=== PATIENT | female | born 1955 | race Caucasian/White ===

== ENCOUNTER 2018-06-10 02:33 | Outpatient (CLI) | payer BC, SELFPAY ==
[2018-06-10 10:47] LABS: ALT 27 U/L (12-78); AST 19 U/L (15-37); Albumin 4.2 g/dL (3.4-5.0); Alkaline Phosphatase 73 U/L (46-116); Anion Gap 9.1 mmol/L (3-11); BUN 18 mg/dL (7-18); Bilirubin, Total 0.4 mg/dL (0.2-1.0); CO2 28.9 mmol/L (21.0-32.0); CREATININE 0.86 mg/dL (0.55-1.02); Calcium 9.5 mg/dL (8.5-10.1); Chloride 104 mmol/L (98-107); Cholesterol 219 mg/dL (50-200); Glucose 95 mg/dL (70-100); HDL Cholesterol 53 mg/dL (40-60); LDL CHOLESTEROL 140 mg/dL (<100); Potassium 4.3 mmol/L (3.5-5.1); Sodium 142 mmol/L (136-145); Total Protein 7.3 g/dL (6.4-8.2); Triglyceride 106 mg/dL (30-150)
== END 2018-06-10 02:53 ==
DX: Z00.00 Encounter for general adult medical examination without abnormal findings (principal); K64.4 Residual hemorrhoidal skin tags; M54.5 Low back pain
CPT/HCPCS: 36415; 80053; 80061; 83721

== ENCOUNTER 2018-07-01 00:40 | Outpatient (CLI) | payer BC, SELFPAY ==
--- NOTE | 2018-07-01 07:30 | DI.MAMMO_ITS ---
SYMPTOMS/DIAGNOSIS: SCREENING, Z12.31 MAMMOGRAMS: Mammograms were interpreted according to the usual protocol including computer analysis with CAD system, tomosynthesis and C view imaging. The breasts are of moderate density with fairly symmetrical distribution of fibroglandular tissue. No dominant mass or clumped microcalcification is identified in either breast. Current examination is compared with previous examinations including June 2017 and there has been no gross interval change in appearance in comparison with the previous studies. CONCLUSION: No specific evidence of malignancy at this time. Routine screening examinations are suggested at yearly intervals due to the family history of breast carcinoma. Category 1, breast density category B. MQSA ASSESSMENT OF FINDINGS: Negative. Category 1. Patient will receive a letter notifying them of these results. BI-RADS category B. There are scattered areas of fibroglandular density.
== END 2018-07-01 01:00 ==
DX: Z12.31 Encounter for screening mammogram for malignant neoplasm of breast (principal); Z80.3 Family history of malignant neoplasm of breast
CPT/HCPCS: 77063; 77067

== ENCOUNTER 2018-10-06 07:53 | Day surgery (SDC) | payer BC, SELFPAY ==
--- NOTE | 2018-10-06 07:16 | W.COLOREPORT ---
Date of service: 10/06/18 Time of Service: 09:34 Colonoscopy Report Date of procedure: 10/06/18 Pre-op diagnosis general: Colon Cancer Screening and internal hemorrhoids Post-op diagnosis procedure note: other (Diverticulosis and one internal hemorrhoid) Procedure: 1. Colonoscopy 2. Internal Hemorrhoid banding Surgeon: Patty Messina Anesthesia proc note operative: other (general/ ASA 2/Ricardo Ku, MADELAINE) Estimated blood loss (mL): 3 Pathology: none sent Complications: None Disposition: same day Indications: Mrs. Lawler is a pleasant 63 year old female seen in the office for a screening colonoscopy. She also has internal hemorrhoids that are causing discomfort and bleeding. Risks, benefits and complications have been reviewed. Complications include but are not limited to bleeding, pain, perforation, missed small lesion/polyp, sore throat, aspiration and adverse reaction to the medications. Questions were entertained and answered to their satisfaction and they wished to proceed. No guarantees were given or implied. Prep: Miralax/Dulcolax Procedure Start Time: :34 Procedure End Time: 10:00 Retraction Time: 17 minutes Findings: Mild Diverticulosis and one internal hemorrhoid Procedure Description: After informed consent was obtained the patient was taken to the procedure room and placed in a left decubitous position. Monitors were applied and a time out was done. The patients name, date of , procedure, allergies to medications and metal in their body was reviewed. The patient was then sedated. Once sedated and comfortable a rectal exam was done. External exam was normal. Internal exam revealed a normal sphincter tone and no palpable masses. The scope was then introduced and retro-flexed. One Grade 1 internal hemorrhoid were identified. The scope was then advanced to the cecum without difficulty. The TI and appendiceal orifice were identified. The prep was adequate. The scope was then slowly retracted over 17 minutes back into the rectum. There were no polyps. There was mild diverticulosis of the sigmoid colon. The scope was removed and the patient was woken up and taken back to Same day surgery in stable condition. The patient tolerated the procedure well and there were no immediate complications. Follow up: The patient should follow up in 10 years unless they develop changes in bowel habits or other new gastrointestinal complaints.
--- NOTE | 2018-10-06 07:18 | W.PM.DSUDISC ---
Discharge Plan Disposition Patient Disposition: HOME Condition: Good Discharge Details Reason For Visit: Colonoscopy and internal hemorrgoid banding Attending Provider: Patty Messina Primary Care Provider: Aleena Morfin Home Meds and New Rx's Prescriptions: Continued Nupercainal 1 % ointment 1 applic IL QID PRN (Reason: hemorrhoids) Qty: 56.7 RF: 1 ibuprofen 800 mg tablet 800 mg PO TID PRN (Reason: pain) Qty: 90 RF: 0 hydrocortisone acetate [Anusol-HC] 25 mg suppository 25 mg IL QD-BID PRN (Reason: itching) Qty: 24 RF: 4 flaxseed 340 GM powder 1 tsp PO DAILY RF: 0 wheat germ 1 tsp PO DAILY RF: 0 Discontinued bisacodyl [Dulcolax (bisacodyl)] 5 mg tablet,delayed release (DR/EC) 5 mg PO ONCE Qty: 4 RF: 0 polyethylene glycol 3350 17 gram powder in packet 255 g PO DAILY Qty: 15 RF: 0 Discharge Instructions Instructions: Colonoscopy (GEN), Rubber Band Ligation (GEN), Diverticulosis (ED) Additional Instructions: Findings: Diverticulosis and one internal hemorrhoid Follow up: 10 years Please call if you develop: fevers >101.5 Nausea or Vomiting Abdominal pain that is not transient DAY SURGERY UNIT POST COLONOSCOPY INSTRUCTIONS 1. Because there will be medication in your system for the next 24 hours, you may feel a little sleepy. Your coordination will be affected. Therefore: a. Do not drive or operate dangerous equipment for 24 hours. b. Do not drink alcohol beverages for 24 hours (not even beer). c. Plan to go home and rest for the day. 2. Generally there are no restrictions on your activity after a day or so has gone by, but you may feel a bit fatigued for a few days. 3 After you arrive home you may have a light meal and return to a normal diet as you can tolerate it without feeling sick to your stomach. 4. After surgery, you may feel pain or discomfort. This should be only transient, but if it persists please contact your doctor. 5. If there are any questions regarding the findings of your procedure, please feel free to contact your doctor. 6. If you are unable to contact your doctor with a problem, contact the hospital at [phone]. 7. Continue all your regular medications unless directed otherwise. I understand the above instructions and have no questions. Signature of Patient or Responsible Adult Escort Date/Time Name of Responsible Adult Escort Signature of Nurse Date/Time Activity:: Activity as Tolerated Diet:: High Fiber diet Discharge Orders Discharge Orders: Discharge Order (Routine); Ordered 10/06/18 Ordered By: Patty Messina DS: Diagnosis Discharge Diagnosis (1) History of colonoscopy: Status: Chronic
--- NOTE | 2018-10-06 07:20 | W.PM.HP.N ---
Date of service: 10/06/18 Assessment and Plan (1) History of colonoscopy: Current visit: Yes Status: Chronic A\\ Intermittent bleeding and itching from internal hemorrhoids. Discussed etiology of hemorrhoids and treatment options. We went over avoiding constipation as well as diarrhea. Recommend a high fiber diet and good hydration P\\ Continue with current treatment Will do a hemorrhoid banding at the time of her colonoscopy. (2) Hemorrhoids: Current visit: No Status: Chronic A\\ Colon Cancer screening P\\ Colonoscopy under sedation Risks, benefits and complications have been reviewed. Complications include but are not limited to bleeding, pain, perforation, missed small lesion/polyp, sore throat, aspiration and adverse reaction to the medications. Questions were entertained and answered to their satisfaction and they wished to proceed. No guarantees were given or implied. Qualifiers: Hemorrhoid type: first degree Qualified Code(s): K64.0 - First degree hemorrhoids History of Present Illness Narrative: Mrs. Lawler is a pleasant 63 year old female who has been having intermittent issues with internal hemorrhoids that bleed on and off. She has used suppositories as well as sitz baths and sometimes lidocaine ointment. She is also here to discuss a colonoscopy. Her last Colonoscopy was 10 years ago and was normal. She denies any changes in bowel habits, melena, unintentional weight loss, or family history of colon cancer. There have been no changes in her health since she was last seen Review of Systems Constitutional Denies fever(s) Cardiovascular Denies chest pain, Denies chest pain at rest, Denies claudication, Denies palpitations, Denies dyspnea and Denies dyspnea on exertion Respiratory Denies dyspnea and Denies dyspnea on exertion Endocrine Denies palpitations [facility] Medical History Eczema (Acute) External hemorrhoid (Acute 06/16/17) Family history of breast cancer in sister (Acute 06/16/17) Hip pain (Acute 07/23/12) Low back pain (Acute 11/28/14) Parotitis (Acute) Sialadenitis (Acute 11/28/14) Surgical History History of colonoscopy (Chronic ~10/06/18) Laparoscopic, Ovarian Cystectomy (~1996) Open Carpal Tunnel release Family History Mother Essential hypertension Stroke Heart disease Father Lung cancer Brother Smoker Prostate cancer Hypertension Sister Essential hypertension FAMILY HISTORY Stroke Sister Hypertension Sister No problems noted. Sister No problems noted. Sister Breast cancer Sister No problems noted. Brother Smoker Hypertension Maternal Grandfather No problems noted. Paternal Grandfather No problems noted. Maternal Grandmother No problems noted. Paternal Grandmother No problems noted. Social History Smoking/Tobacco Use Status: Former Tobacco Use Quit Date: 03/23/77 Alcohol Intake: never Drug use: Never Substance use type: does not use Caregiver/Support person: No Household members: spouse Housing: house Communication Needs: None Pets and animals: No Sexually active: Yes Do you think of yourself as: straight/heterosexual Current gender identity: female What is your relationship status?: How often do you talk on the phone with friends or family?: decline to answer How often do you get together with friends or relatives?: decline to answer How often do you attend pentecostalism or presybeterian services?: decline to answer Do you belong to any clubs or organized social groups?: decline to answer Panel score (0-1 are the most socially isolated patients): 1 What type of physical activity do you participate in: walking Duration: 30-45 minutes/day Frequency: 5-6 times per week Carli/Hoahaoism: [employer] Special carli needs: No Seatbelt use: always Do you feel safe at home: Yes Do you feel safe in your relationship?: Yes Meds Home Medications Medication Instructions Recorded Confirmed Type Wheat Germ 1 tsp PO DAILY 07/23/12 10/06/18 History flaxseed 1 tsp PO DAILY 07/23/12 10/06/18 History ibuprofen 800 mg tablet 800 mg PO TID PRN #90 tab 04/13/18 10/06/18 Rx dibucaine 1 % rectal ointment 1 applic ME QID PRN #56.7 gm 06/28/18 10/06/18 Rx hydrocortisone acetate 25 mg 25 mg ME QD-BID PRN #24 each 08/23/18 10/06/18 Rx rectal suppository Allergies Allergy/AdvReac Type Severity Reaction Status Date / Time No Known Allergies Allergy Verified 10/06/18 08:16 Exam Const General: cooperative and comfortable Orientation: alert and oriented x3 Resp Effort & Inspection: normal respiratory effort Auscultation: clear to auscultation bilaterally Cardio Rate: regular rate Rhythm: regular rhythm Heart Sounds: no gallops, no murmurs and no rubs
[2018-10-06 08:06] VITALS: BP 125/82; PULSE 94; RESP 18; TEMP 35.8; O2SAT 96
[2018-10-06] MEDS: Lactated Ringers 1,000 ML 80 ML IV (08:27)
[2018-10-06 10:46] VITALS: BP 91/56; PULSE 71; RESP 16; TEMP 35.6; O2SAT 98
== END 2018-10-06 11:06 | disposition home or self-care (01) ==
LOC: SUR 07:54
PROVIDERS: Visit Provider Surgery
PROC: 0DJD8ZZ Inspection of Lower Intestinal Tract, Via Natural or Artificial Opening Endoscopic (ICD-10-PCS; CPT 45378; principal; 2018-10-06 09:15)
DX: Z12.11 Encounter for screening for malignant neoplasm of colon (principal); K64.0 First degree hemorrhoids; K57.30 Diverticulosis of large intestine without perforation or abscess without bleeding
CPT/HCPCS: 45398; NC

== ENCOUNTER 2020-10-29 12:44 | Outpatient (REF) | payer BC, SELFPAY ==
--- NOTE | 2020-10-29 11:14 | PAPFT_PTH ---
PATIENT: Samantha Lawler LOC: [facility]#:[id number] AGE/SX: 65/F ROOM: RE10/29/[address]: Aleena Morfin APRN : 1955 BED: DIS: 10/29/2020 SPEC #: [id number] RECD: 10/29/20 13:07 STATUS: SEBASTIÁN REQ #: [id number] CAYDEN: 10/29/20 11:[address]: Aleena Morfin DEPT: [facility] Cytology RECD BY: Sosa Gordillo Tissues: 1 - CX/ENDOCX FOR PAP SMEARS Procedures: PAP THIN PREP/UVM Screening HPV DNA PROBE Comments: [id number]
== END 2020-10-29 12:45 | disposition home or self-care (01) ==
LOC: LBN 12:44
DX: Z12.4 Encounter for screening for malignant neoplasm of cervix (principal); Z11.51 Encounter for screening for human papillomavirus (HPV)
CPT/HCPCS: 88142; 87624

== ENCOUNTER 2020-11-02 02:07 | Outpatient (CLI) | payer BC, SELFPAY ==
[2020-11-02 13:32] LABS: ALT 49 U/L (14-59); AST 27 U/L (15-37); Albumin 4.2 g/dL (3.4-5.0); Alkaline Phosphatase 69 U/L (46-116); Anion Gap 3.3 mmol/L (3-11); BUN 16 mg/dL (7-18); Bilirubin, Total 0.5 mg/dL (0.2-1.0); CO2 29.7 mmol/L (21.0-32.0); CREATININE 0.8 mg/dL (0.55-1.02); Calcium 9.5 mg/dL (8.5-10.1); Calculated LDL 146 mg/dL (<100); Chloride 107 mmol/L (98-107); Cholesterol 215 mg/dL (<200); Glucose 96 mg/dL (74-106); HDL Cholesterol 54 mg/dL (40-60); Potassium 4.8 mmol/L (3.5-5.1); Sodium 140 mmol/L (136-145); Total Protein 7.5 g/dL (6.4-8.2); Triglyceride 75 mg/dL (<150)
== END 2020-11-02 02:08 | disposition home or self-care (01) ==
LOC: LOS 02:07
DX: Z00.00 Encounter for general adult medical examination without abnormal findings (principal); E78.5 Hyperlipidemia, unspecified; R03.0 Elevated blood-pressure reading, without diagnosis of hypertension
CPT/HCPCS: 36415; 80053; 80061

== ENCOUNTER 2020-11-21 01:54 | Outpatient (CLI) | payer BC, SELFPAY ==
--- NOTE | 2020-11-21 08:15 | DI.MAMMO_ITS ---
Exam(s) MAMMO SCREENING EXAM: MAMMO SCREENING CLINICAL HISTORY: screening,Z12.39 TECHNIQUE: Bilateral full field digital CC and MLO mammographic images were obtained with 3D tomosyn thesis and utilizing computer aided detection (CAD). COMPARISON: Available for comparison. FINDINGS: Masses/Architectural Distortion: None seen. Microcalcifications: No suspicious pleomorphic-type are seen. Skin Thickening/Nipple Retraction: None. IMPRESSION: 1. No significant interval change with no specific features of malignancy noted. 2. Unless there is more urgent need, screening mammography is recommended, as per [place] [employer] guidelines. BI-RADS Category 1 - Negative Breast Density - Category B - Scattered areas of fibroglandular density Breast density category C or D implies that the patient has dense breast tissue. Dense breast tissue is very common and is not abnormal but dense breast tissue can make it harder to find cancer on a ma mmogram. Also, dense breast tissue may increase their breast cancer risk. This information about the result of the mammogram report was provided to the patient to raise their awareness. Use this report when you speak with the patient about their risks for breast cancer, which includes their family hist ory. At that time, you may recommend for more screening tests (Ultrasound or MRI) as they might be us eful based on their risk. A negative radiographic report should not delay biopsy if a dominant or clinically suspicious mass is present. Up to ten percent of cancers are not identified on mammography. A negative report may reinforce clinical impression. Adenosis and dense breasts may obscure an underlying neoplasm. False positive reports average 6 to 10%. Patient will receive a letter notifying them of these results.
== END 2020-11-21 02:14 ==
DX: Z12.31 Encounter for screening mammogram for malignant neoplasm of breast (principal)
CPT/HCPCS: 77063; 77067

== ENCOUNTER 2021-10-04 01:20 | Outpatient (CLI) | payer BC, SELFPAY ==
--- OUTSIDE RECORDS SUMMARY | 2021-10-04 01:21 | XMS_ITS | Encounter Summary ---
:1955 [place] [address] Care Team Providers Name Role Phone Ericka Fuentes APRN Primary Care Provider Reason for Visit Reason Comments Establish Care Possible parotitis, sx's inc lude swollen face, no pain Consultation (Routine) - Specialty Diagnoses / Procedures Referred By Contact Refer red To Contact Otolaryngology Diagnoses Sialadenitis Calista Cutler MD [facility] Otolaryngology [address] [address] [place], [place] [address] Referral ID Status Reason Start Date Expiration Date Visits V isits Requested Authorized [id number] Consult, 09/14/2015 09/13/2016 1 1 Test & Treat Connection Center Encounter Details Date Type Department Care Team Description 10/10/2015 Office Visit Otolaryngology at [facility] Santino Blood PA Parotid swelling [facility] [place] [address] OTOLARYNGOLOGY DEPT. [place], [place] [address] Social History Tobacco Use Types Packs/Day Years Used Date Never Smoker Sex Assigned at Date Recorded Not on file documented as of this encounter Last Filed Vital Signs Vital Sign Reading Time Taken Comments Blood Pressure 143/94 10/10/2015 12:47 PM EDT Pulse 79 10/10/2015 12:47 PM EDT Temperature - - Respiratory Rate - - Oxygen Saturation - - Inhaled Oxygen Concentration - - Weight 81.2 kg (179 lb) 10/10/2015 12:47 PM EDT Height 162.6 cm (5' 4) 10/10/2015 12:47 PM EDT Body Mass Index 30.73 10/10/2015 12:47 PM EDT documented in this encounter Progress Notes Santino Blood PA - 10/10/2015 1:00 PM EDT Samantha Lawler is 60 years of age and presents today for evaluation of facial swelling. The patient reports a history in November 2014 where she awoke with her lips and mouth feeling swollen in the left side of her face swollen. She did go to the emergency department. They felt that thiswas most likely a parotid duct obstruction. She was placed on antibiotics and prednisone and told tomassage the gland. She came home and brushed her teeth with her sonic care and was massaging that region. She heard a pop and the swelling immediately went down with drainage of clear saliva. She continued to stay hydrated. However, in August she had similar symptoms but it felt a bit worse to her with increased swelling. She was again placed on antibiotics, and serologic studies did reflect an increase in her white blood cell count. She did start massaging again and the swelling went down. She was uncomfortable but in no significant pain. Her mouth felt abnormal slightly burning sensation. She also was having decreased sense of taste and her mouth just felt different. Interestingly a few days laterwhile still on the prednisone and antibiotics the right side parotid region became swollen. All her symptoms eventually resolved and she is back to normal. She has continued to keep herself hydrated and does use Wendell's with massage. She denies any dry eye symptoms or dry mouth symptoms. She just describes an abnormal sensation in the mouth. Her health otherwise is excellent no chronic illnesses described. She did have an issue with eczema for a couple of years but that has since cleared up. Social history: She is and works in an office. Tobacco: She smokes socially for 1-2 years in high school. Quit entirely in 1977. Alcohol: Does not use. Family history: Father has had a history of lung cancer. On exam she is healthy-appearing in no acute distress. Palpation of the parotid regions revealed no palpable mass or induration. The neck is without palpable adenopathy or mass. Oral examination reveals normal appearing mucosa of the buccal mucosa, gutters, gums, palate, and posterior pharyngeal wall. Milking of the parotid glands produces clear saliva from Stensen's ducts. The patient and massage of the subendometrial glands also produce clear saliva from Ocean's ducts. The oral mucosa appears healthy. Impression: Intermittent swelling of the parotid glands. I'm unsure of the etiology. This possibly could be due to Sjogren's syndrome. My feeling is that she should continue with hydration, sialogogs, and parotid massage. Should this persist I would recommend rheumatology evaluation. She may go through her primary care physician for the referral. Santino Blood PA-C Department of Otolaryngology [facility] [place] [address] Office Phone - documented in this encounter Plan of Treatment Not on filedocumented as of this encounter Visit Diagnoses Diagnosis Parotid swelling Swelling, mass, or lump in head and neck documented in this encounter Care Teams Chief Inspector Relationship Specialty Start Date End Date Ericka Fuentes APRN PCP - General Family Medicine 09/13/15 documented as of this encounter
--- OUTSIDE RECORDS SUMMARY | 2021-10-04 01:21 | XMS_ITS | Encounter Summary ---
:1955 Author Organization [facility] [place] [address] Care Team Providers Name Role Phone Ericka Fuentes Keith JESSICA Primary Care Provider Reason for Visit Reason Comments Flashes Of Light Consultation (Urgent) - Closed Specialty Diagnoses / Procedures Referred By Contact Refer red To Contact Ophthalmology Luis Eduardo Horton, Nenita Muñoz MD [address] [place] [address] [place] [address] [place] [address] Phone: Fax: Referral ID Status Reason Start Date Expiration Date Visits V isits Requested Authorized [id number] Closed Consult, 04/25/2019 04/24/2020 1 1 Test & Treat Encounter Details Date Type Department Care Team Description 04/26/2019 Office Visit Ophthalmology at [facility] C Nenita Fleming, Retinal hemorrhage, [facility] [place] [address] [facility] [phone] OPHTHALMOLOGY DEPT [place], [place] [address] Social History Tobacco Use Types Packs/Day Years Used Date Former Smoker Smokeless Tobacco: Never Used Alcohol Use Standard Drinks/Week Comments Not Currently 0 (1 standard drink = 0.6 oz pure alcoho l) Sex Assigned at Date Recorded Not on file documented as of this encounter Progress Notes Nenita Fleming MD - 04/26/2019 8:30 AM EST Encounter Diagnosis Name Primary? Retinal hemorrhage, right eye Samantha Lawler, a 63 y.o. female with the following problem(s): 1. Possible retinal tear OD: suspicious given symptoms and + Stockton's sign. Retinal hemorrhage at 6 oclock concerning for possible tear - d/w SOPHY and they will evaluate today - Findings and concerns discussed with Samantha and she expressed understanding. FOLLOW UP - with retina today documented in this encounter Plan of Treatment Not on filedocumented as of this encounter Visit Diagnoses Diagnosis Retinal hemorrhage, right eye Retinal hemorrhage documented in this encounter Care Teams Step Down Specialist Relationship Specialty Start Date End Date Ericka Fuentes APRN PCP - General Family Medicine 09/13/15 documented as of this encounter
--- OUTSIDE RECORDS SUMMARY | 2021-10-04 01:21 | XMS_ITS | Clinical Summary ---
:1955 Author Organization [facility] [place] [address] Care Team Providers Name Role Phone Ericka Fuentes APRN Primary Care Provider Allergies No known active allergies Medications Medication Sig Dispensed Refills Start Date End Date Status Ibuprofen 200 mg Take 400 mg by 0 Active Capsule mouth as needed. Active Problems Problem Noted Date Retinal hemorrhage, right eye 04/26/2019 Immunizations Name Administration Dates Next Due Influenza Vaccine, Whole 02/04/2006, 01/17/2005 Family History Medical History Relation Comments Glaucoma Paternal Uncle Macular Degeneration Paternal Uncle Amblyopia Neg Hx Retinal Detachment Neg Hx Strabismus Neg Hx Relation Status Comments Paternal Uncle Social History Tobacco Use Types Packs/Day Years Used Date Former Smoker Smokeless Tobacco: Never Used Alcohol Use Standard Drinks/Week Comments Not Currently 0 (1 standard drink = 0.6 oz pure alcoho l) Sex Assigned at Date Recorded Not on file Last Filed Vital Signs Vital Sign Reading Time Taken Comments Blood Pressure 140/85 11/21/2015 12:47 PM EDT Pulse 79 11/21/2015 12:47 PM EDT Temperature 36.8 ??C (98.2 ??F) 11/21/2015 12:47 PM EDT Respiratory Rate - - Oxygen Saturation 100% 11/21/2015 12:47 PM EDT Inhaled Oxygen Concentration - - Weight 83.9 kg (185 lb) 11/21/2015 12:47 PM EDT Height 162.6 cm (5' 4) 11/21/2015 12:47 PM EDT Body Mass Index 31.76 11/21/2015 12:47 PM EDT Plan of Treatment Health Maintenance Due Date Last Done Comments Covid-19 Vaccine (#1) 1962 HIV screen 07/02/1975 Hepatitis C Screening 07/02/1975 Tdap adult 1976 Tetanus vaccine 1976 HPV test 07/02/1987 PAP Smear 07/02/1987 Breast Cancer Share Decision Needed 1997 Colonoscopy 2002 Breast Cancer screening 07/02/2007 Zoster vaccine (1 of 2) 07/02/2007 Advance Directive 2012 Influenza (Flu) vaccine (1 of 1 - 11/21/2021 02/04/2006, Influenza standard series) Insurance Payer Benefit Plan / Subscriber ID Effective Dates Phone Addre ss Type Group [employer] [facility] [place] [id number] 2018-Present [address] [place] [address] Care Teams [employer] C[employer] Farmer Relationship Specialty Start Date End Date Ericka Fuentes, JESSICA PCP - General Family Medicine 09/13/15
--- OUTSIDE RECORDS SUMMARY | 2021-10-04 01:21 | XMS_ITS | Encounter Summary ---
:1955 Author Organization [facility] [place] [address] Care Team Providers Name Role Phone Ericka Fuentes APRN Primary Care Provider Encounter Details Date Type Department Care Team Description 04/26/2019 Office Visit Ophthalmology at [facility] C Naa, Retinal hemorrhage, [facility] [place] [address] [place] [address] [place], [place] [address] Social History Tobacco Use Types Packs/Day Years Used Date Former Smoker Smokeless Tobacco: Never Used Alcohol Use Standard Drinks/Week Comments Not Currently 0 (1 standard drink = 0.6 oz pure alcoho l) Sex Assigned at Date Recorded Not on file documented as of this encounter Progress Notes Randi Jacome MD - 04/26/2019 10:45 AM EST ASSESSMENT/PLAN: 1. Retinal hemorrhage, right eye Visual Acuity Visual Acuity (Snellen - Linear) Right Left Dist cc 20/25 20/20-2 Near cc 20/25-1 20/20 Tonometry Tonometry (Applanation) Right Left Pressure 14 15 1. Hemorrhagic PVD OD (Dx 04/26/2019) - Today's exam shows hemorrhagic posterior vitreous detachment in the right eye. Fortunately, the scleral depressed exam did not reveal signs of retinal breaks or other pathology for which prophylacticretinopexy would be recommended - Warning symptoms of retinal detachment (flashes, floaters, curtains/clouds) discussed. Also emphasized that the the first ~1 month after the PVD is the high risk period for retinal tears and retinal detachment. 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 Monitor 3. NS OU monitor Follow up in 2 weeks for DFE OU I, Chris ReyesTati Rojas, have performed the documentation for this encounter in the presence of, and acting as a scribe for Randi Jacome MD. I performed the services which were documented by the scribe, and I agree with the accuracy of the documentation in this encounter. Randi Jacome MD, PhD Extended Ophthalmoscopy and drawing: Technique: 20D with scleral depression and 78D with the slit lamp Findings: Main Ophthalmology Exam External Exam Right Left External Normal Normal Slit Lamp Exam Right Left Lids/Lashes Normal Normal Conjunctiva/Sclera White and quiet White and quiet Cornea Clear Clear Anterior Chamber Deep and quiet Deep and quiet Iris Round and reactive Round and reactive Lens Trace Nuclear sclerosis Trace Nuclear sclerosis Fundus Exam Right Left Vitreous 1+ VH, PVD Normal Disc Normal Normal C/D Ratio 0.4 0.4 Macula flame heme inf to fovea Normal Vessels Normal Normal Periphery inferior VH, , Shallow schisis ST retinoschisis ST, CHRPE IT Plan: See assessment and plan (exam note) documented in this encounter Plan of Treatment Not on filedocumented as of this encounter Procedures Procedure Name Priority Date/Time Associated Diagnosis Comme nts OCT RETINA - OU - Routine 04/26/2019 10:22 AM Retinal hemorrha ge, Results for this BOTH EYES EST right eye procedure are i n the results section. documented in this encounter Results OCT Retina - OU - Both Eyes (04/26/2019 10:22 AM EST) Anatomical Region Laterality Modality Other Specimen (Source) Anatomical Location Collection Method / Collectio n Time Received Time / Laterality Volume Narrative 04/26/2019 10:22 AM EST Right Eye Quality was good. Scan locations include d subfoveal. Findings include normal observations, normal foveal conto ur. Left Eye Quality was good. Scan locations include d subfoveal. Findings include normal foveal contour, normal observatio ns. Notes [facility] Randi Jacome MD OPHTHALMOLOGY SERVICES MARKOS DENNISON documented in this encounter Visit Diagnoses Diagnosis Retinal hemorrhage, right eye Retinal hemorrhage documented in this encounter Care Teams Nursing Project Coordinator Relationship Specialty Start Date End Date Ericka Fuentes, CHIP WASHER PCP - General Family Medicine 09/13/15 documented as of this encounter
--- OUTSIDE RECORDS SUMMARY | 2021-10-04 01:21 | XMS_ITS | Encounter Summary ---
:1955 Author Organization [facility] [place] [address] Care Team Providers Name Role Phone Tu Ross APRN Primary Care Provider Reason for Visit Reason Comments Referral Consultation (Routine) - Closed Specialty Diagnoses / Procedures Referred By Contact Refer red To Contact Rheumatology Diagnoses dx sialadenitis Calista Cutler MD [facility] Rheumatology 5c Procedures wants female provider [address] [facility] [address] [place] [id number] [place], [place] [address] Referral ID Status Reason Start Date Expiration Visits Visits Date Requested Authorized [id number] Closed Connection 10/24/2015 10/23/2016 1 1 [place] Encounter Details Date Type Department Care Team Description 11/21/2015 Office Visit Rheumatology at [facility] Danii Osei MD [facility] [place] [address] [facility] Kurt Law MD [facility] GENERAL [place] [address] [place] [address] Social History Tobacco Use Types Packs/Day Years [...] Mass Index 31.76 11/21/2015 12:47 PM EDT documented in this encounter Progress Notes Kurt Mukherjee MD - 11/21/2015 1:00 PM EDT Rheumatology Outpatient Consultation Note Reason for Consult: The patient is seen at the request of Calista Cutler For evaluation and treatmentof parotid swelling History of Present Illness: Samantha Lawler is a 60 y.o. female who presents today for evaluation of recurrent parotid swelling. Her first description is in 11/2014 of one episode on the left side, which was presumed secondary to dehydration as it was a warm day and she wasn't drinking very much. It resolved with masage, and since then she has been making sure to keep hydrated. Her second episode was in 08/2015 starting in the left side again, and presented to the ED with blood work including KALIN 1:40 speckled, and was sent home with prednisone and penicillin for 1 week. While still on the medications, with the L side resolved, the R side became swollen 1 week later, and resolved within a week. During that time, her only other significant symptom was a burning sensation in her mouth. She has had no subsequent episodes and cannot identify any preceding incidents. She does have occasional ageusia. Rheumatic history (x) means positive Iritis/uveitis conjunctivitis as child Oral / Nasal Ulcers Dry mouth/eyes New for last year eyes, mouth a little dry (using lemon juice because told to) no eyedrops Pleuritis/Pericarditis PE/DVT/Spontaneous IBD Photosensitivity rash Discoid rash Psoriasis eczema Dactylitis Raynaud???s Inflammatory arthritis Anemia/leukopenia/thrombocytopenia Anemia during menarche ROS Scanned in chart Problem list: H/o Carpal tunnel Occasional lower back pain Family Hx: HTN (-)RA, (-)lupus, (-)scleroderma, (-)sjogren's, (-)gout Social History: 1py in high school No alcohol No iv drugs 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, Sx in 1997 and 2003) Physical Examination: BP 140/85 Pulse 79 Temp 36.8 ??C (98.2 ??F) (Oral) Ht 162.6 cm (5' 4) Wt 83.9 kg (185 lb) SpO2 100%BMI 31.76 kg/m2 General: NAD, AAOx3 HEENT: NC/AT, no oral ulcers, moist membranes, normal salivary pooling Skin: No rashes, erythema over cheeks Neck: No lymphadenopathy Cardiovascular: S1S2, no MCR Lungs: CTA b/l Abdomen: Non distended Neuro: Grossly intact Extremities: Shoulders: fROM, non tender Elbows: fROM, non tender Wrists: fROM, non tender Hands: full fist, non tender compression, no capillary nail changes Hips: fROM Laboratory Data: KALIN 1:40 speckled CBC 19.93> 13.3 Impression: Samantha Lawler is a 60 y.o. female who presents today with recurrent parotid gland swelling. She has a normal KALIN and no history of true Sicca symptoms. However, she has had a recent increase in mild dry mouth at night and mild itchy eyes, which could represent early disease. It is unusual to have KALIN negative Sjogren's, but it is possible, and so it may be worthwhile to check an GOLDEN for Ro and La. While the diagnosis is certainly possible, her symptoms are very mild, and her preference is not to go on any medications at this time. If the Ro/La are positive, we would pursue further diagnostics such as ophthalmic exam or lip biopsy, with routine Sjogren screening for lymphoma every year. Recommendations: Medications: would consider plaquenil if symptoms worsen Labs: GOLDEN, CBC Procedures: consider lip biopsy if Ro/La positive Follow-up 6 months CC: TU ROSS, JESSICA Mukherjee MD 11/21/2015 Case seen and discussed with Dr Osei Danii Osei MD - 11/21/2015 1:00 PM EDT I saw MsTati Lawler with Dr. Mukherjee and agree with the details of the history, PE and A/P outlined in his note. No significant parotid swelling on My exam, mouth without sicca and teeth repaired, no adenopathy appreciated. Would check KALIN. Danii Osei MD - 11/21/2015 1:00 PM EDT GOLDEN, KALIN already complete. documented in this encounter Miscellaneous Notes Addendum Note - Stefani Roberson - 11/21/2015 2:22 PM EDT Addended by: STEFANI ROBERSON on: 11/21/2015 02:22 PM Modules accepted: Orders documented in this encounter Plan of Treatment Not on filedocumented as of this encounter Procedures Procedure Name Priority Date/Time Associated Comments Diagnosis URINALYSIS WITH REFLEX Routine 11/21/2015 3:15 PM Sicca Results for this CULTURE EDT procedure are i n the results section. EXTRACTABLE NUCLEAR Routine 11/21/2015 2:35 PM Sicca Re sults for this ANTIGEN (GOLDEN) AB EDT procedure a re in the results section. HEMOGRAM Routine 11/21/2015 2:35 PM Sicca Results f or this EDT procedure are i n the results section. DIFFERENTIAL, Routine 11/21/2015 2:35 PM Sicca Results for this AUTOMATED EDT procedure are i n the results section. CBC (WITH DIFF) Routine 11/21/2015 2:35 PM Sicca EDT COMPREHENSIVE Routine 11/21/2015 2:35 PM Sicca Results for this METABOLIC PANEL EDT procedure ar e in (NON-FASTING) the results section. documented in this encounter Results (ABNORMAL) Urinalysis with reflex Culture (11/21/2015 3:15 PM EDT) Patholo gist Method Time Signature Glucose UA Negative Negative [facility] mg/dL [facility] Protein UA Negative Negative [facility] mg/dL [facility] Bilirubin UA Negative Negative [facility] mg/dL [facility] Comment: Clinical correlation required for positi ve Urine Bilirubin results as false positive may occur with some drugs and d rug related products. If a false positive is suspected a serum total bili juarez should be considered if clinically indicated. Urobilinogen UA Normal Normal mg/dL [facility] pH UA 6.0 5.0 - 8.0 [facility] Blood UA Moderate (A) Negative mg/dL [facility] Ketones UA Negative Negative mg/dL [facility] Nitrite UA Negative Negative [facility] Leukocytes UA Negative Negative [facility] Appearance UA Clear Clear [facility] Spec [place] UA 1.008 1.002 - 1.030 [facility] Color UA Straw Yellow [facility] RBC UA 1 0 - 4 /HPF [facility] WBC UA Not Present 0 - 5 /HPF [facility] Bacteria UA Rare (A) None /HPF [facility] Squam Epith UA <1 <=4 /HPF [facility] Culture Reflexed No [facility] Specimen Anatomical Collection Method Collection Time Receive d Time (Source) Location / / Volume Laterality Urine specimen 11/21/2015 3:15 PM 016 3:21 (specimen) EDT PM EDT Resulting Agency Comment Spec In Lab Danii Osei MD URINE ORDERABLES Performing Organization Address City/State/ZIP [place] [address] Differential, Automated (11/21/2015 2:35 PM EDT) athologist Signature Neutrophils % 65.8 % [facility] Neutr Abs (ANC) 5.46 1.50 - [facility] 6.30 [facility] x10(3)/[facility] LABORATORY Lymphocytes % 24.7 % [facility] Lymphocytes Abs 2.0 1.0 - 3.6 [facility] x10(3)/[facility]ORY Monocytes % 6.4 % [facility] Monocyte Abs 0.5 0.2 - [address] [facility] x10(3)/[facility] Eosinophils % 2.2 % [facility] Eosinophils Abs 0.2 0.0 - 0.5 [facility] x10(3)/[facility] Basophils % 0.7 % [facility] Basophils Abs 0.1 0.0 - 0.2 [facility] x10(3)/[facility]ORY Immature Gran % 0.20 % [facility] Comment: Immature granulocytes(IG's)percentage an d absolute count will include metamyelocytes, myelocytes, and promyelo cytes. Blood smears from CBCs yielding IG's will be scanned manually for concor dance. If this scan disagrees with the automated IG or if promyelocytes are not ed, a manual differential will be performed. Kaylene Gran Abs 0.02 0.00 - 0.05 x10(3)/[facility] Y [facility] Specimen Anatomical Collection Method Collection Time Receive d Time (Source) Location / / Volume Laterality Blood specimen 11/21/2015 2:35 PM 016 2:46 (specimen) EDT PM EDT Resulting Agency Comment Spec In Lab Danii Osei MD HEMATOLOGY ORDERABLES Performing Organization Address City/State/ZIP [place] [address] Hemogram (11/21/2015 2:35 PM EDT) P athologist Signature WBC 8.3 4.0 - 10.0 [facility] x10(3)/[facility] LABORATORY RBC 4.55 3.93 - [facility] 5.22 [facility] x10(6)/[facility] LABORATORY Hemoglobin 13.8 11.2 - [facility] 15.7 gm/dL [facility] Hematocrit 40.2 34.0 - [facility] 45.0 % [facility] MCV 88.4 79.0 - [facility] 94.0 [facility] MCH 30.3 26.6 - [facility] 32.2 pg [facility] MCHC 34.3 32.0 - KRISHNA ANABELLA 36.5 gm/dL [facility] Platelets 226 145 - 370 [facility] x10(3)/[facility] LABORATORY RDWSD 37.6 35.0 - KR[place]NA ANABELLA 46.0 [facility] RDWCV 11.6 10.9 - [place] ANABELLA 14.4 % [facility] MPV 9.0 9.0 - 12.0 [facility] LABORATORY nRBC % Auto 0.0 % [facility] nRBC Abs Auto 0.000 0.000 - [facility] 0.012 [facility] x10(3)/[facility]ATORY Specimen Anatomical Collection Method Collection Time Receive d Time (Source) Location / / Volume Laterality Blood specimen 11/21/2015 2:35 PM 016 2:46 (specimen) EDT PM EDT Resulting Agency Comment Spec In Lab Danii Osei MD HEMATOLOGY ORDERABLES Performing Organization Address City/State/ZIP [place] [address] (ABNORMAL) Comprehensive metabolic panel (non-fasting) (11/21/2015 2:35 PM EDT) athologist Signature Glucose Lvl 97 65 - [address] [facility] mg/dL [facility] Comment: Diabetes: >=200 mg/dL plus symp toms BUN 16 8 - 18 mg/dL [facility] Creatinine 0.84 0.70 - 1.20 mg/dL [facility] Comment: Please note that the pediatric reference intervals supplied above were not validated at [facility]. Results from pediatri c patients should be interpreted in conjunction to the patient's age, height and muscle mass. Sodium 139 135 - 145 mmol/L [facility] Potassium 3.7 3.5 - 5.0 mmol/L [facility] Comment: Please note: ??Patients with WBC >100,00 0 may have falsely elevated Potassium levels. ??For accurate Potassium quantif ication in these patients send serum separator tube (gold top) for subsequent determinations. ??Contact the Clinical Chemistry Laboratory if there are any qu estions. Chloride 100 98 - 107 mmol/L [facility] CO2 25 22 - 31 mmol/L [facility] Anion Gap 14 5 - 15 mmol/L [facility] Calcium 9.9 8.5 - 10.5 mg/dL [facility] Total Protein 8.0 6.1 - 8.0 gm/dL [facility] Albumin 4.8 3.2 - 5.2 gm/dL [facility] AST 29 0 - 30 unit/L [facility] ALT 39 (H) 0 - 30 unit/L [facility] Alk Phos 73 40 - 104 unit/L [facility] Total Bilirubin 0.4 0.2 - 1.3 mg/dL [facility] Bili, Direct 0.1 0.0 - 0.3 mg/dL [facility] Estimated GFR >60 >=60 [facility] Comment: This estimated GFR (eGFR) value was calc ulated using the MDRD equation which has been validated on patients between t he ages of 18 and 70. The MDRD should not be used to assess kidney function in patients < 18 years of age or in patients with extremes of body mass, or in patients with acute kidney failure. This value should be multiplied by 1.2 f or patients. For further information please copy and past e the following links into your internet browser. http://Elastifile/DHnkdep http://Elastifile/DHMCnkf Specimen Anatomical Collection Method Collection Time Receive d Time (Source) Location / / Volume Laterality Blood specimen 11/21/2015 2:35 PM 016 2:46 (specimen) EDT PM EDT Resulting Agency Comment Spec In Lab Danii Osei MD CHEMISTRY ORDERABLES Performing Organization Address City/State/ZIP Code Phon e Number [place] [address] Extractable Nuclear Antigen (GOLDEN) Ab (11/21/2015 2:35 PM EDT) [facility] Method Time Signature GOLDEN Ab KRISHNA KYLE Test ?Result ?Flag ??Unit ??RefValue [facility] Ab to Extractable Nuclear Ag Terri [facility]astume LABORATORY ??SS-A/Ro Ab, IgG, S ?<0.2 ?U -- REFERENCE VALUE -- <1.0 (Negative) ??SS-B/La Ab, IgG, S ?<0.2 ?U -- REFERENCE VALUE -- <1.0 (Negative) ??Sm Ab, IgG, S ? <0.2 ? U -- REFERENCE VALUE -- <1.0 (Negative) ??CLINICAL NURSING DIRECTOR Ab, IgG, S ?<0.2 ? U -- REFERENCE VALUE -- <1.0 (Negative) ??Scl 70 Ab, IgG, S ? <0.2 ?U -- REFERENCE VALUE -- <1.0 (Negative) ??Jenniffer 1 Ab, IgG, S ? <0.2 ?U -- REFERENCE VALUE -- <1.0 (Negative) Test Performed by: [facility] - [address] [address] Warrant Clerk: Chuck Herrera II, M.D., Ph.D. Specimen Anatomical Collection Method Collection Time Receive d Time (Source) Location / / Volume Laterality Blood specimen 11/21/2015 2:35 PM 016 3:54 (specimen) EDT PM EDT Resulting Agency Comment Spec In Lab Danii sOei MD IMMUNOLOGY ORDERABLES Performing Organization Address City/State/[facility] [place] [address] documented in this encounter Visit Diagnoses Diagnosis Sicca Sicca syndrome documented in this encounter Care Teams Pet Feeder Relationship Specialty Start Date End Date Tu Ross APRN PCP - General Family Medicine 09/13/15 documented as of this encounter
--- OUTSIDE RECORDS SUMMARY | 2021-10-04 01:21 | XMS_ITS | Encounter Summary ---
:1955 Author Organization [facility] [place] [address] Care Team Providers Name Role Phone Ericka Fuentes APRN Primary Care Provider Reason for Visit Reason Comments Follow-up Retinal hemorrhage Encounter Details Date Type Department Care Team Description 08/10/2019 Office Visit Ophthalmology at [facility] C Naa, Retinal hemorrhage, [facility] MD Randi [place] [address] [place] [address] [place], [place] [address] Social History Tobacco Use Types Packs/Day Years Used Date Former Smoker Smokeless Tobacco: Never Used Alcohol Use Standard Drinks/Week Comments Not Currently 0 (1 standard drink = 0.6 oz pure alcoho l) Sex Assigned at Date Recorded Not on file documented as of this encounter Progress Notes Randi Jacome MD - 08/10/2019 8:45 AM EDT ASSESSMENT/PLAN: 1. Retinal hemorrhage, right eye Visual Acuity Visual Acuity (Snellen - Linear) Right Left Dist cc 20/20 -1 20/20 Near cc 20/20 20/20 Tonometry Tonometry (Applanation, 9:07 AM) Right Left Pressure 15 14 1. Hemorrhagic PVD OD (Dx 04/26/2019) Today 20/20 Again, there are no tears or detachments based on the scleral depressed exam. The VH has also resolved. RD precautions given. Recommended close observation and reassurance provided. 2. Schisis OU No holes. Monitor 3. NS OU monitor Follow up with [facility] retina PRN I, Chris AmyTati Rojas, have performed the documentation for this [...] Nuclear sclerosis Fundus Exam Right Left Vitreous PVD 1+ vitreous debris Disc Normal Normal C/D Ratio 0.4 0.4 Macula Normal Normal Vessels Normal Normal Periphery Shallow schisis ST shallow retinoschisis ST, CHRPE IT Plan: See assessment and plan (exam note) documented in this encounter Plan of Treatment Not on filedocumented as of this encounter Visit Diagnoses Diagnosis Retinal hemorrhage, right eye Retinal hemorrhage documented in this encounter Care Teams Automatic Driller And Reamer Relationship Specialty Start Date End Date Ericka Fuentes, JESSICA PCP - General Family Medicine 09/13/15 documented as of this encounter
--- OUTSIDE RECORDS SUMMARY | 2021-10-04 01:21 | XMS_ITS | Encounter Summary ---
:1955 Author Organization [facility] [place] [address] Care Team Providers Name Role Phone Ericka Fuentes APRN Primary Care Provider Encounter Details Date Type Department Care Team Description 02/19/2016 Telephone Rheumatology at [facility] [place] [address] Social History Tobacco Use Types Packs/Day Years Used Date Never Smoker Sex Assigned at Date Recorded Not on file documented as of this encounter Miscellaneous Notes Telephone Encounter - Julia Arvizu LPN - 02/19/2016 9:38 AM EST RTC to Samantha who had another episode over the weekend with her recurrent parotid gland swelling. She states that it is better now and had some mild drainage over the weekend. She also has a call to her PCP to see if an antibiotic is needed. She states that it is better today. documented in this encounter Plan of Treatment Not on filedocumented as of this encounter Visit Diagnoses Not on filedocumented in this encounter Care Teams Sleeve Separator Relationship Specialty Start Date End Date Ericka Fuentes APRN PCP - General Family Medicine 09/13/15 documented as of this encounter
--- OUTSIDE RECORDS SUMMARY | 2021-10-04 01:21 | XMS_ITS | Encounter Summary ---
:1955 Author Organization [facility] [place] [address] Care Team Providers Name Role Phone Ericka Fuentes APRN Primary Care Provider Encounter Details Date Type Department Care Team Description 02/19/2016 Orders Only Rheumatology at [facility] Kurt Mukherjee MD [facility] [place] [facility] [place] [address] GENERAL INTERNAL [phone] MEDICINE [place] [phone] (Wo rk) Social History Tobacco Use Types Packs/Day Years Used Date Never Smoker Sex Assigned at Date Recorded Not on file documented as of this encounter Plan of Treatment Not on filedocumented as of this encounter Visit Diagnoses Diagnosis Parotitis Sialoadenitis documented in this encounter Care Teams Casting Operator Helper Relationship Specialty Start Date End Date Ericka Fuentes APRN PCP - General Family Medicine 09/13/15 documented as of this encounter
[2021-10-04 12:56] LABS: ALT 33 U/L (14-59); AST 24 U/L (15-37); Albumin 4.1 g/dL (3.4-5.0); Alkaline Phosphatase 67 U/L (46-116); Anion Gap 7.2 mmol/L (3-11); BUN 22 mg/dL (7-18); Bilirubin, Total 0.5 mg/dL (0.2-1.0); CO2 29.8 mmol/L (21.0-32.0); Calcium 9.2 mg/dL (8.5-10.1); Calculated LDL 154 mg/dL (<100); Chloride 105 mmol/L (98-107); Cholesterol 233 mg/dL (<200); Estimated GFR 55.82 (mL/min/1.73m2); Glucose 101 mg/dL (74-106); HDL Cholesterol 57 mg/dL (40-60); Potassium 4.2 mmol/L (3.5-5.1); Sodium 142 mmol/L (136-145); Total Protein 7.6 g/dL (6.4-8.2); Triglyceride 110 mg/dL (<150)
== END 2021-10-04 01:21 | disposition home or self-care (01) ==
LOC: LOS 01:20
DX: Z00.00 Encounter for general adult medical examination without abnormal findings (principal); I10 Essential (primary) hypertension; E78.5 Hyperlipidemia, unspecified
CPT/HCPCS: 36415; 80053; 80061

== ENCOUNTER 2022-06-17 01:30 | Outpatient (CLI) | payer BC, SELFPAY ==
--- NOTE | 2022-06-17 08:15 | DI.MAMMO_ITS ---
Exam(s) MAMMO SCREENING EXAM: MAMMO SCREENING CLINICAL HISTORY: screening,Z12.39 TECHNIQUE: Bilateral full field digital CC and MLO mammographic images were obtained with 3D tomosyn thesis and utilizing computer aided detection (CAD). COMPARISON: Available for comparison. FINDINGS: Masses/Architectural Distortion: None seen. Microcalcifications: No suspicious pleomorphic-type are seen. Skin Thickening/Nipple Retraction: None. IMPRESSION: 1. No significant interval change with no specific features of malignancy noted. 2. Unless there is more urgent need, screening mammography is recommended, as per [employer] [place] [employer] guidelines. BI-RADS Category 1 - Negative Breast Density - Category B - Scattered areas of fibroglandular density Breast density category C or D implies that the patient has dense breast tissue. Dense breast tissue is very common and is not abnormal but dense breast tissue can make it harder to find cancer on a ma mmogram. Also, dense breast tissue may increase their breast cancer risk. This information about the result of the mammogram report was provided to the patient to raise their awareness. Use this report when you speak with the patient about their risks for breast cancer, which includes their family hist ory. At that time, you may recommend for more screening tests (Ultrasound or MRI) as they might be us eful based on their risk. A negative radiographic report should not delay biopsy if a dominant or clinically suspicious mass is present. Up to ten percent of cancers are not identified on mammography. A negative report may reinforce clinical impression. Adenosis and dense breasts may obscure an underlying neoplasm. False positive reports average 6 to 10%. Patient will receive a letter notifying them of these results.
== END 2022-06-17 01:50 ==
LOC: DI 01:31
PROVIDERS: PCP Nurse Practitioner Family; Visit Provider Nurse Practitioner Family
DX: Z12.31 Encounter for screening mammogram for malignant neoplasm of breast (principal)
CPT/HCPCS: 77063; 77067

== ENCOUNTER → 2023-06-23 03:37 | Outpatient (CLI) | payer MEDICARE, BC, SELFPAY ==
--- NOTE | 2023-06-23 14:53 | DI.MAMMO_ITS ---
Exam(s) MAMMO SCREENING EXAM: MAMMO SCREENING CLINICAL HISTORY: screening,z12.39. TECHNIQUE: Bilateral full field digital CC and MLO mammographic images were obtained with 3D tomosyn thesis and utilizing computer aided detection (CAD). COMPARISON: Prior mammograms were reviewed. FINDINGS: There has been no significant change in the appearance and distribution of the fibroglandular tissue. There are no CAD designations. There are no new spiculated masses nor malignant appearing microcalcification groups. There is no significant architectural distortion nor skin thickening-retraction. IMPRESSION: No radiographic evidence of malignancy. BI-RADS Category 1 - Negative Breast Density - Category B - Scattered areas of fibroglandular density Breast density Category C or D implies that the patient has dense breast tissue. Dense breast tissue can make it harder to find cancer on a mammogram. Dense breast tissue is also associated with an incr eased risk of breast cancer. This information about the result of the mammogram report was provided to the patient to raise their awareness. Use this report when you speak with the patient about their risks for breast cancer, which includes their family history. At that time, you may recommend additional screening tests (Ultrasoun d or MRI) as these tests may add significant information. A negative radiographic report should not delay biopsy if a dominant or clinically suspicious mass is present. Up to ten percent of cancers are not identified on mammography. A negative report may reinforce clinical impression. Adenosis and dense breasts may obscure an underlying neoplasm. False positive reports average 6 to 10%. Patient will receive a letter notifying them of these results.
== END ==
PROVIDERS: PCP Nurse Practitioner Family; Visit Provider Nurse Practitioner Family
DX: Z12.31 Encounter for screening mammogram for malignant neoplasm of breast (principal)
CPT/HCPCS: 77063; 77067

== ENCOUNTER 2023-08-11 05:21 | Outpatient (CLI) | payer MEDICARE, BC, SELFPAY ==
[2023-08-11 12:30] LABS: Anion Gap 9.2 mmol/L (3-11); BUN 17 mg/dL (7-18); CO2 27.8 mmol/L (21.0-32.0); CREATININE 0.9 mg/dL (0.55-1.02); Calcium 9.6 mg/dL (8.5-10.1); Calculated LDL 136 mg/dL (<100); Chloride 106 mmol/L (98-107); Cholesterol 227 mg/dL (<200); Estimated GFR 70.51 (mL/min/1.73m2); Glucose 109 mg/dL (74-106); HDL Cholesterol 71 mg/dL (40-60); Sodium 143 mmol/L (136-145); Triglyceride 104 mg/dL (<150)
== END 2023-08-11 05:22 | disposition home or self-care (01) ==
LOC: LOS 05:21
PROVIDERS: PCP Nurse Practitioner Family; Visit Provider Nurse Practitioner Family
DX: I10 Essential (primary) hypertension (principal); E78.5 Hyperlipidemia, unspecified; E66.9 Obesity, unspecified
CPT/HCPCS: 36415; 80048; 80061

== ENCOUNTER 2024-06-30 01:13 | Outpatient (CLI) | payer MEDICARE, BC, SELFPAY ==
--- NOTE | 2024-06-30 07:15 | DI.MAMMO_ITS ---
Exam(s) MAMMO SCREENING EXAM: MAMMO SCREENING CLINICAL HISTORY: screening, Z12.39 TECHNIQUE: Mammograms were interpreted according to the usual protocol including computer analysis w [email or web address] CAD system, tomosynthesis and C-view imaging. COMPARISON: 2015 through 2023 FINDINGS: The breasts are composed of scattered fibroglandular densities, Breast Density category B. No suspicious masses or suspicious microcalcifications are seen. No skin thickening or abnormal axillary lymph nodes are seen. There has been no significant change from prior exams. IMPRESSION: BI-RADS Category 1, Negative mammogram Yearly screening mammography is recommended. Breast Density - Category B, scattered fibroglandular densities. A negative radiographic report should not delay biopsy if a dominant or clinically suspicious mass is present. Up to ten percent of cancers are not identified on mammography. A negative report may reinforce clinical impression. Adenosis and dense breasts may obscure an underlying neoplasm. False positive reports average 6 to 10%. Patient will receive a letter notifying them of these results.
== END 2024-06-30 01:33 ==
LOC: DI 01:13
PROVIDERS: PCP Nurse Practitioner Family; Visit Provider Nurse Practitioner Family
DX: Z12.31 Encounter for screening mammogram for malignant neoplasm of breast (principal); R92.323 Mammographic fibroglandular density, bilateral breasts
CPT/HCPCS: 77063; 77067

== ENCOUNTER 2024-07-12 03:45 | Outpatient (CLI) | payer MEDICARE, BC, SELFPAY ==
[2024-07-12 12:49] LABS: Hemoglobin A1C 5.6 % (<5.7)
[2024-07-12 13:07] LABS: ALT 32 U/L (14-59); AST 22 U/L (15-37); Alkaline Phosphatase 79 U/L (46-116); Anion Gap 7.4 mmol/L (3-11); BUN 13 mg/dL (7-18); Bilirubin, Total 0.5 mg/dL (0.2-1.0); CO2 26.6 mmol/L (21.0-32.0); Calcium 9.2 mg/dL (8.5-10.1); Calculated LDL 125 mg/dL (<100); Chloride 105 mmol/L (98-107); Cholesterol 207 mg/dL (<200); Estimated GFR 61.75 (mL/min/1.73m2); Glucose 92 mg/dL (74-106); HDL Cholesterol 58 mg/dL (>or=50); Potassium 4.1 mmol/L (3.5-5.1); Sodium 139 mmol/L (136-145); Total Protein 7.5 g/dL (6.4-8.2); Triglyceride 123 mg/dL (<150)
== END 2024-07-12 03:46 | disposition home or self-care (01) ==
LOC: LOS 03:45
PROVIDERS: PCP Nurse Practitioner Family; Visit Provider Nurse Practitioner Family
DX: R73.09 Other abnormal glucose (principal); I10 Essential (primary) hypertension; E78.5 Hyperlipidemia, unspecified; E66.9 Obesity, unspecified
CPT/HCPCS: 36415; 80053; 80061; 83036